=== PATIENT | female | born 1980 | race Caucasian/White ===

== ENCOUNTER 2020-05-09 01:59 | Inpatient (IN) | payer OTHER ==
[~2020-05-09] VITALS: Ht 154.9 cm; Wt 108.0 kg
[2020-05-09 02:03] VITALS: Ht 154.9 cm; Wt 108.0 kg
[2020-05-09 04:22] LABS: PLATELET COUNT 533 x10^3mcL (130-400); RED CELL DISTRIBUTION WIDTH 17.7 % (11.5-14.5)
[2020-05-09 04:30] LABS: UA SPECIFIC GRAVITY >=1.030 (1.005-1.035); microscopic required? YES; urine erythrocyte 3+ (NEGATIVE)
[2020-05-09 04:35] LABS: ALKALINE PHOSPHATASE 117 U/L (46-116); ALT/SGPT 20 U/L (14-59); AST/SGOT 32 U/L (15-37); BILIRUBIN TOTAL 0.36 mg/dL (0.20-1.00); CALCIUM 7.8 mg/dL (8.5-10.1); CARBON DIOXIDE 18.4 mmol/L (21-32); CHLORIDE SERUM 100 mmol/L (98-107); CREATININE SERUM 3.9 mg/dL (0.6-1.0); GFR1 14 mL/min; GLUCOSE SERUM 67 mg/dL (74-106); POTASSIUM SERUM 5.2 mmol/L (3.5-5.1); SODIUM SERUM 133 mmol/L (136-145); TOTAL PROTEIN, SERUM 6.4 g/dL (6.4-8.2)
[2020-05-09 04:38] LABS: ALBUMIN 1.4 g/dL (3.4-5.0)
[2020-05-09 04:46] LABS: AMPHETAMINE QUAL UR POSITIVE (See below)
[2020-05-09] MEDS ORDERED: APAP325 MG PO (05:28)
[2020-05-09] MEDS ORDERED: ASPIRIN CHILDRE81 MG PO (05:28)
[2020-05-09] MEDS ORDERED: PREMIERPRO RX CE1 G3 IV (05:29)
[2020-05-09] MEDS ORDERED: DULCOLAX10 M1 RC (05:32)
[2020-05-09] MEDS ORDERED: FLEET ENEMA135 ML RC (05:33)
[2020-05-09] MEDS ORDERED: FEOSOL65 M1 PO (05:33)
[2020-05-09] MEDS ORDERED: ACIDOPHILUS LA1 EAC1 PO (05:34)
[2020-05-09] MEDS ORDERED: METFORMIN500 M1 PO (05:35)
[2020-05-09] MEDS ORDERED: GOOD NEIGH1200 MG/15 (05:35)
[2020-05-09] MEDS ORDERED: NORCO1 TA2 PO (05:36)
[2020-05-09 05:37] LABS: BAND NEUTROPHIL 9 % (0-10); BASOPHIL 0 % (0-2); MONOCYTE 2 % (0-7); PLATELET MORPHOLOGY LARGE PLATELET SEEN; SEGMENTED NEUTROPHILS 87 % (37-75); rbc morphology (normal/abnorm) ABNORMAL (NORMAL); tear drop cell (dacryocyte) 1+
[2020-05-09] MEDS ORDERED: KLOR-CON 1010 MEQ PO (05:37)
[2020-05-09] MEDS ORDERED: GLIPIZIDE XL2.5 M1 PO (05:37)
[2020-05-09 11:19] VITALS: BP 137/91
[2020-05-09 17:35] VITALS: BP 132/70
[2020-05-09 20:34] VITALS: BP 106/64
[2020-05-10] VITALS (8 sets, daily range): BP systolic 87–127; BP diastolic 50–79
[2020-05-10 07:47] LABS: CALCIUM 7.9 mg/dL (8.5-10.1); CARBON DIOXIDE 16.5 mmol/L (21-32); MAGNESIUM 2.2 mg/dL (1.8-2.4); POTASSIUM SERUM 5.4 mmol/L (3.5-5.1)
[2020-05-10 08:15] LABS: RED CELL DISTRIBUTION WIDTH 17.8 % (11.5-14.5)
[2020-05-10 08:21] LABS: CREATININE SERUM 4.3 mg/dL (0.6-1.0)
[2020-05-10 11:57] LABS: MONOCYTE 1 % (0-7); SEGMENTED NEUTROPHILS 96 % (37-75)
[2020-05-10 12:00] LABS: rbc morphology (normal/abnorm) ABNORMAL (NORMAL)
[2020-05-10 12:01] LABS: PLATELET COUNT 571 x10^3mcL (130-400)
[2020-05-10 14:44] LABS: BILIRUBIN TOTAL 0.6 mg/dL (0.20-1.00); CALCIUM 7.5 mg/dL (8.5-10.1); CARBON DIOXIDE 12.8 mmol/L (21-32); MAGNESIUM 2.2 mg/dL (1.8-2.4)
[2020-05-10 15:02] LABS: RED CELL DISTRIBUTION WIDTH 17.6 % (11.5-14.5)
[2020-05-10 15:10] LABS: ALBUMIN 1.3 g/dL (3.4-5.0); POTASSIUM SERUM 5.6 mmol/L (3.5-5.1); TOTAL PROTEIN, SERUM 5.8 g/dL (6.4-8.2)
[2020-05-10 15:11] LABS: CREATININE SERUM 4.6 mg/dL (0.6-1.0)
[2020-05-10 15:43] LABS: BAND NEUTROPHIL 3 % (0-10); BASOPHIL 0 % (0-2); MONOCYTE 2 % (0-7); SEGMENTED NEUTROPHILS 91 % (37-75)
[2020-05-10 15:44] LABS: rbc morphology (normal/abnorm) ABNORMAL (NORMAL)
[2020-05-10 15:52] LABS: PLATELET COUNT 581 x10^3mcL (130-400)
[2020-05-10 20:13] LABS: CALCIUM 7.1 mg/dL (8.5-10.1); CARBON DIOXIDE 17.1 mmol/L (21-32); POTASSIUM SERUM 5.4 mmol/L (3.5-5.1)
[2020-05-10 20:17] LABS: CREATININE SERUM 4.5 mg/dL (0.6-1.0)
[2020-05-11] VITALS (15 sets, daily range): BP systolic 96–135; BP diastolic 54–70
[2020-05-11 07:16] LABS: CALCIUM 7.2 mg/dL (8.5-10.1); CARBON DIOXIDE 19.2 mmol/L (21-32); CREATININE SERUM 3.8 mg/dL (0.6-1.0); MAGNESIUM 1.9 mg/dL (1.8-2.4); POTASSIUM SERUM 4.6 mmol/L (3.5-5.1)
[2020-05-11 08:31] LABS: PLATELET COUNT 503 x10^3mcL (130-400)
[2020-05-11 09:10] LABS: ALPHA FETOPROTEIN TUMOR MARKER < 0.9 ng/mL (0.0-8.3)
[2020-05-11 10:23] LABS: BAND NEUTROPHIL 3 % (0-10); MONOCYTE 3 % (0-7); SEGMENTED NEUTROPHILS 90 % (37-75)
[2020-05-11 10:24] LABS: rbc morphology (normal/abnorm) ABNORMAL (NORMAL)
[2020-05-12] VITALS (16 sets, daily range): BP systolic 108–159; BP diastolic 58–89
[2020-05-12 05:40] LABS: BASOPHIL % 0 % (0-2); RED CELL DISTRIBUTION WIDTH 16.3 % (11.5-14.5)
[2020-05-12 05:47] LABS: PLATELET COUNT 503 x10^3mcL (130-400)
[2020-05-12 05:56] LABS: CALCIUM 6.9 mg/dL (8.5-10.1); CARBON DIOXIDE 28.9 mmol/L (21-32); CREATININE SERUM 3.2 mg/dL (0.6-1.0); MAGNESIUM 1.8 mg/dL (1.8-2.4); POTASSIUM SERUM 3.7 mmol/L (3.5-5.1)
[2020-05-13] VITALS (18 sets, daily range): BP systolic 62–183; BP diastolic 70–90
[2020-05-13 04:06] LABS: CA ANTIGEN 27-29 16.5 U/mL (0.0-38.6)
[2020-05-13 06:20] LABS: BASOPHIL % 0 % (0-2); PLATELET COUNT 412 x10^3mcL (130-400); RED CELL DISTRIBUTION WIDTH 16.8 % (11.5-14.5)
[2020-05-13 06:25] LABS: CALCIUM 6.8 mg/dL (8.5-10.1); CARBON DIOXIDE 29.6 mmol/L (21-32); CREATININE SERUM 3.3 mg/dL (0.6-1.0); MAGNESIUM 2.2 mg/dL (1.8-2.4); POTASSIUM SERUM 3.4 mmol/L (3.5-5.1)
[2020-05-14] VITALS (17 sets, daily range): BP systolic 127–208; BP diastolic 55–143
[2020-05-14 06:05] LABS: PLATELET COUNT 357 x10^3mcL (130-400)
[2020-05-14 06:06] LABS: BASOPHIL % 0 % (0-2); RED CELL DISTRIBUTION WIDTH 16.6 % (11.5-14.5)
[2020-05-14 06:49] LABS: CALCIUM 6.6 mg/dL (8.5-10.1); CARBON DIOXIDE 33.2 mmol/L (21-32); CREATININE SERUM 2.3 mg/dL (0.6-1.0); MAGNESIUM 1.8 mg/dL (1.8-2.4)
[2020-05-14 10:35] LABS: POTASSIUM SERUM 2.6 mmol/L (3.5-5.1)
[2020-05-15] VITALS (17 sets, daily range): BP systolic 104–213; BP diastolic 60–111
[2020-05-15 06:01] LABS: PLATELET COUNT 360 x10^3mcL (130-400)
[2020-05-15 06:03] LABS: BASOPHIL % 0 % (0-2); RED CELL DISTRIBUTION WIDTH 16.9 % (11.5-14.5)
[2020-05-15 06:17] LABS: PHOSPHOROUS 3.8 mg/dL (2.5-4.9)
[2020-05-15 06:24] LABS: CALCIUM 6.9 mg/dL (8.5-10.1); CARBON DIOXIDE 28.9 mmol/L (21-32); CREATININE SERUM 2.3 mg/dL (0.6-1.0)
[2020-05-15 08:29] LABS: POTASSIUM SERUM 2.9 mmol/L (3.5-5.1)
[2020-05-15 18:35] LABS: CALCIUM 7.3 mg/dL (8.5-10.1); CARBON DIOXIDE 31.7 mmol/L (21-32); CREATININE SERUM 2.3 mg/dL (0.6-1.0)
[2020-05-15 19:00] LABS: POTASSIUM SERUM 2.9 mmol/L (3.5-5.1)
[2020-05-16] VITALS (15 sets, daily range): BP systolic 105–167; BP diastolic 63–80
[2020-05-16 04:34] LABS: CALCIUM 6.9 mg/dL (8.5-10.1); CARBON DIOXIDE 29.5 mmol/L (21-32); CREATININE SERUM 2.3 mg/dL (0.6-1.0); POTASSIUM SERUM 3.1 mmol/L (3.5-5.1)
[2020-05-16 18:04] LABS: CALCIUM 6.8 mg/dL (8.5-10.1); CARBON DIOXIDE 30.8 mmol/L (21-32); CREATININE SERUM 2.2 mg/dL (0.6-1.0); POTASSIUM SERUM 3.3 mmol/L (3.5-5.1)
[2020-05-17] VITALS (14 sets, daily range): BP systolic 105–165; BP diastolic 58–83
[2020-05-17 06:21] LABS: CARBON DIOXIDE 27.5 mmol/L (21-32); CREATININE SERUM 2.3 mg/dL (0.6-1.0); POTASSIUM SERUM 3.6 mmol/L (3.5-5.1)
[2020-05-17 16:03] LABS: BASOPHIL % 0.2 % (0-2); PLATELET COUNT 280 x10^3mcL (130-400)
[2020-05-17 20:05] LABS: CALCIUM 6.9 mg/dL (8.5-10.1); CREATININE SERUM 2.3 mg/dL (0.6-1.0); POTASSIUM SERUM 3.4 mmol/L (3.5-5.1)
[2020-05-18] VITALS (17 sets, daily range): BP systolic 100–178; BP diastolic 60–89
[2020-05-18 05:55] LABS: BASOPHIL % 0.1 % (0-2); PLATELET COUNT 336 x10^3mcL (130-400)
[2020-05-18 06:05] LABS: RED CELL DISTRIBUTION WIDTH 17.1 % (11.5-14.5)
[2020-05-18 06:08] LABS: CALCIUM 7.1 mg/dL (8.5-10.1); CARBON DIOXIDE 26.8 mmol/L (21-32); CREATININE SERUM 2.2 mg/dL (0.6-1.0); POTASSIUM SERUM 3.5 mmol/L (3.5-5.1)
[2020-05-18 18:05] LABS: CALCIUM 7.1 mg/dL (8.5-10.1); CARBON DIOXIDE 26.5 mmol/L (21-32); CREATININE SERUM 1.4 mg/dL (0.6-1.0)
[2020-05-18 18:10] LABS: POTASSIUM SERUM 2.8 mmol/L (3.5-5.1)
[2020-05-19] VITALS (12 sets, daily range): BP systolic 111–173; BP diastolic 58–82
[2020-05-19 06:11] LABS: BASOPHIL % 0.2 % (0-2); PLATELET COUNT 312 x10^3mcL (130-400)
[2020-05-19 06:16] LABS: RED CELL DISTRIBUTION WIDTH 16.8 % (11.5-14.5)
[2020-05-19 06:27] LABS: BILIRUBIN TOTAL 0.37 mg/dL (0.20-1.00); CALCIUM 7.4 mg/dL (8.5-10.1); CARBON DIOXIDE 25.1 mmol/L (21-32); CREATININE SERUM 1.6 mg/dL (0.6-1.0); POTASSIUM SERUM 3.2 mmol/L (3.5-5.1)
[2020-05-19 06:28] LABS: ALBUMIN 1.8 g/dL (3.4-5.0); TOTAL PROTEIN, SERUM 4.9 g/dL (6.4-8.2)
[2020-05-20 00:24] VITALS: BP 129/72
[2020-05-20 04:28] VITALS: BP 143/80
[2020-05-20 07:50] VITALS: BP 117/75
[2020-05-20 08:52] LABS: CALCIUM 7.6 mg/dL (8.5-10.1); CARBON DIOXIDE 21.6 mmol/L (21-32); CREATININE SERUM 1.8 mg/dL (0.6-1.0); POTASSIUM SERUM 3.4 mmol/L (3.5-5.1)
[2020-05-20 08:57] LABS: ALBUMIN 1.9 g/dL (3.4-5.0); BILIRUBIN TOTAL 0.37 mg/dL (0.20-1.00); TOTAL PROTEIN, SERUM 5.1 g/dL (6.4-8.2)
[2020-05-20 09:08] LABS: PLATELET COUNT 313 x10^3mcL (130-400)
[2020-05-20 09:09] LABS: BASOPHIL % 0 % (0-2); RED CELL DISTRIBUTION WIDTH 16.9 % (11.5-14.5)
[2020-05-20 16:12] VITALS: BP 155/70
[2020-05-20 21:21] VITALS: BP 142/80
[2020-05-21 06:18] VITALS: BP 142/86
[2020-05-21 07:18] LABS: BASOPHIL % 0.4 % (0-2); PLATELET COUNT 347 x10^3mcL (130-400)
[2020-05-21 07:29] LABS: RED CELL DISTRIBUTION WIDTH 16.1 % (11.5-14.5)
[2020-05-21 07:41] LABS: CALCIUM 7.8 mg/dL (8.5-10.1); CARBON DIOXIDE 23.6 mmol/L (21-32); CREATININE SERUM 1.8 mg/dL (0.6-1.0); POTASSIUM SERUM 3.3 mmol/L (3.5-5.1)
[2020-05-21 09:26] VITALS: BP 141/76
[2020-05-21 11:30] VITALS: BP 143/73
[2020-05-21 16:21] VITALS: BP 152/62
[2020-05-21 20:46] VITALS: BP 150/78
[2020-05-22 01:42] VITALS: BP 130/73
[2020-05-22 05:34] VITALS: BP 160/78
[2020-05-22 07:34] LABS: BASOPHIL % 0.3 % (0-2); PLATELET COUNT 329 x10^3mcL (130-400)
[2020-05-22 07:36] LABS: RED CELL DISTRIBUTION WIDTH 16.8 % (11.5-14.5)
[2020-05-22 07:47] LABS: CREATININE SERUM 1.9 mg/dL (0.6-1.0); POTASSIUM SERUM 3.3 mmol/L (3.5-5.1)
[2020-05-22 08:15] VITALS: BP 147/76
[2020-05-22 12:17] VITALS: BP 135/63
[2020-05-22 16:56] VITALS: BP 140/66
[2020-05-22 21:25] VITALS: BP 141/75
[2020-05-23 05:42] VITALS: BP 148/80
[2020-05-23 07:31] LABS: CALCIUM 7.7 mg/dL (8.5-10.1); CARBON DIOXIDE 23.4 mmol/L (21-32); CREATININE SERUM 1.8 mg/dL (0.6-1.0); PHOSPHOROUS 4.9 mg/dL (2.5-4.9); POTASSIUM SERUM 3.2 mmol/L (3.5-5.1)
[2020-05-23 08:23] VITALS: BP 142/80
[2020-05-23 08:28] LABS: BASOPHIL % 0 % (0-2); PLATELET COUNT 310 x10^3mcL (130-400); RED CELL DISTRIBUTION WIDTH 17.5 % (11.5-14.5)
[2020-05-23 14:14] VITALS: BP 136/73
[2020-05-23 16:59] VITALS: BP 122/76
[2020-05-23 20:58] VITALS: BP 136/70
[2020-05-24 06:05] VITALS: BP 155/72
[2020-05-24 07:09] LABS: BASOPHIL % 0.2 % (0-2); PLATELET COUNT 267 x10^3mcL (130-400)
[2020-05-24 07:38] LABS: BILIRUBIN DIRECT 0.1 mg/dL (0.0-0.2); BILIRUBIN TOTAL 0.34 mg/dL (0.20-1.00); CALCIUM 7.9 mg/dL (8.5-10.1); CARBON DIOXIDE 24.1 mmol/L (21-32); CREATININE SERUM 1.5 mg/dL (0.6-1.0); POTASSIUM SERUM 3.1 mmol/L (3.5-5.1)
[2020-05-24 07:46] LABS: ALBUMIN 1.9 g/dL (3.4-5.0); TOTAL PROTEIN, SERUM 5.2 g/dL (6.4-8.2)
[2020-05-24 07:50] LABS: RED CELL DISTRIBUTION WIDTH 17.5 % (11.5-14.5)
[2020-05-24 08:21] VITALS: BP 103/62
[2020-05-24 11:54] VITALS: BP 155/68
[2020-05-24 17:25] VITALS: BP 124/66
[2020-05-24 19:25] VITALS: BP 124/66
[2020-05-24 20:26] VITALS: BP 134/66
== END 2020-05-24 21:00 | DRG 720 ==
LOC: ED 01:59 → IC 05:33 → DU 05:33 → IC 05-10 13:55 → DU 05-20 12:48
PROVIDERS: Hospitalist; Internal Medicine; Student in an Organized Health Care Education/Training Program; ADMIT Hospitalist; ATTEND Hospitalist
PROC: 02HV33Z Insertion of Infusion Device into Superior Vena Cava, Percutaneous Approach (ICD-10-PCS; principal; 2020-05-10)
PROC: B548ZZA Ultrasonography of Superior Vena Cava, Guidance (ICD-10-PCS; 2020-05-10)
PROC: 0BH17EZ Insertion of Endotracheal Airway into Trachea, Via Natural or Artificial Opening (ICD-10-PCS; 2020-05-10)
PROC: 5A1955Z Respiratory Ventilation, Greater than 96 Consecutive Hours (ICD-10-PCS; 2020-05-10)
PROC: 5A1D70Z Performance of Urinary Filtration, Intermittent, Less than 6 Hours Per Day (ICD-10-PCS; 2020-05-10)
PROC: 5A1D70Z Performance of Urinary Filtration, Intermittent, Less than 6 Hours Per Day (ICD-10-PCS; 2020-05-11)
PROC: 0W9D3ZZ Drainage of Pericardial Cavity, Percutaneous Approach (ICD-10-PCS; 2020-05-12)
PROC: 5A1D70Z Performance of Urinary Filtration, Intermittent, Less than 6 Hours Per Day (ICD-10-PCS; 2020-05-13)
PROC: 5A1D70Z Performance of Urinary Filtration, Intermittent, Less than 6 Hours Per Day (ICD-10-PCS; 2020-05-15)
PROC: 5A1D70Z Performance of Urinary Filtration, Intermittent, Less than 6 Hours Per Day (ICD-10-PCS; 2020-05-16)
PROC: 5A1D70Z Performance of Urinary Filtration, Intermittent, Less than 6 Hours Per Day (ICD-10-PCS; 2020-05-18)
PROC: 5A1D70Z Performance of Urinary Filtration, Intermittent, Less than 6 Hours Per Day (ICD-10-PCS; 2020-05-20)
DX: A41.9 Sepsis, unspecified organism (principal); U07.1 COVID-19; J96.00 Acute respiratory failure, unspecified whether with hypoxia or hypercapnia; I46.9 Cardiac arrest, cause unspecified; R65.21 Severe sepsis with septic shock; J18.1 Lobar pneumonia, unspecified organism; G92 Toxic encephalopathy; N17.9 Acute kidney failure, unspecified; I12.0 Hypertensive chronic kidney disease with stage 5 chronic kidney disease or end stage renal disease; N18.5 Chronic kidney disease, stage 5; I31.3 Pericardial effusion (noninflammatory); E11.22 Type 2 diabetes mellitus with diabetic chronic kidney disease; E78.5 Hyperlipidemia, unspecified; N39.0 Urinary tract infection, site not specified; G89.29 Other chronic pain; E11.52 Type 2 diabetes mellitus with diabetic peripheral angiopathy with gangrene; N83.201 Unspecified ovarian cyst, right side; D63.8 Anemia in other chronic diseases classified elsewhere; E11.40 Type 2 diabetes mellitus with diabetic neuropathy, unspecified; M86.8X7 Other osteomyelitis, ankle and foot; E66.3 Overweight; Z71.3 Dietary counseling and surveillance; Z88.0 Allergy status to penicillin; Z88.1 Allergy status to other antibiotic agents; Z79.899 Other long term (current) drug therapy; Z68.43 Body mass index [BMI] 50.0-59.9, adult
CPT/HCPCS: 31500; 33010; 36600; 76930; 82962; 85378; 86300; 92526-GN; 92610-GN; A4628; C1769; C1894; C9113; G0378; G0480; J0133; J1644; J1720; J1815; J1940; J1953; J2001; J2060; J2185 ×2; J2250; J2405; J3010; J3370; J3475; J3480; J3490; J7030; J7042; J7050; P9016; P9047; Q9967; U0003